=== PATIENT | female | born 1995 | race Caucasian/White ===

== ENCOUNTER 2018-12-29 14:44 | Emergency (ER) | payer MEDICAID ==
[~2018-12-29] VITALS: Ht 167.6 cm; Wt 78.0 kg
[2018-12-29 14:48] VITALS: BP_SYST 138
--- NOTE | 2018-12-29 14:55 | NUR ---
Patient to ER bed 6 to gown for evaluation. Side rails up. Report given to Vahe RODRIGUEZ.
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
--- NOTE | 2018-12-29 14:58 | NUR ---
Kym RODRIGUEZ at bedside examining patient.
[2018-12-29] MEDS ORDERED: IBUPROFEN 400 MG TABLET PO ONE (15:00)
[2018-12-29 16:07] VITALS: BP_SYST 138
--- NOTE | 2018-12-29 16:07 | NUR ---
Patient given written and verbal discharge instructions and verbalizes understanding. ER MD discussed with patient the results and treatment provided. Patient in stable condition. ID arm band Rx of tylenol, norco given. Patient educated on pain management and to follow up with PMD. Pain Scale 6/10, [employer] Kym aware. Opportunity for questions provided and answered. Medication side effect fact sheet provided.
== END 2018-12-29 16:07 | disposition home or self-care (01) ==
LOC: SED 14:44
DX: S82.301A Unspecified fracture of lower end of right tibia, initial encounter for closed fracture (principal); Z88.0 Allergy status to penicillin; W19.XXXA Unspecified fall, initial encounter; Y93.89 Activity, other specified; Y92.89 Other specified places as the place of occurrence of the external cause; Y99.8 Other external cause status
CPT/HCPCS: 99283